=== PATIENT | female | born 1950 | race Caucasian/White ===

== ENCOUNTER 2025-03-30 20:24 | Emergency (ER) | payer MEDICARE, SELFPAY ==
[2025-03-30 20:45] VITALS: BP 161/77; PULSE 87; RESP 16; TEMP 36.7; O2SAT 96; BMI 32.9
--- NOTE | 2025-03-30 20:48 | ED.GENADULT ---
HPI - General Adult General Chief complaint: General Medical Stated complaint: swollen right eye from medication prescribed UC Time Seen by Provider: 03/31/25 03:06 Source: patient Mode of arrival: ambulatory Limitations: no limitations History of Present Illness ED Provider: Dr. Alis Rubio HPI narrative: Patient comes to the emergency room complaining of an allergic reaction to amoxicillin. Patient states that a proximally 15 hours ago, patient was seen at urgent care. Patient tested negative for strep, however, she was diagnosed with a salivary gland infection and was prescribed amoxicillin. Patient states that she took 2 doses of amoxicillin and shortly after, within an hour she started developing right periorbital edema. Patient states that she called urgent care where she was previously seen and she was told that they did not believe it was an allergic reaction. However they did instruct her to take Benadryl. Patient states that the swelling just kept getting worse. Patient states that she never had any chest pain or shortness of breath or oropharyngeal swelling. Patient states that it has been several hours since she took Benadryl and the swelling is starting to calm down and she can now open and close her eye Related Data Previous Rx's ?Medication ?Instructions ?Recorded clindamycin HCl 150 mg capsule 150 mg PO TID 7 days #21 caps 03/31/25 famotidine 40 mg tablet (Pepcid) 40 mg PO DAILY #4 tabs 03/31/25 prednisone 50 mg tablet 50 mg PO DAILY #4 tabs 03/31/25 Allergies Allergy/AdvReac Type Severity Reaction Status Date / Time No Known Allergies Allergy Verified 03/30/25 20:50 Review of Systems Review of Systems: Constitutional : No Weight loss, No Fever, No Chills, No Night Sweats, No Fatigue, No Malaise ENT/Mouth : No Hearing loss, No Ear Pain, No Nasal Congestion, No Sinus Pain, No Hoarseness, No sore throat, No Rhinorrhea, No Swallowing Difficulty Eyes: Patient complaining of right periorbital edema which is actually getting better after 4 doses of Benadryl, No Eye Pain, No Swelling, No Redness, No Foreign Body, No Discharge, No Vision Changes Cardiovascular : No Chest Pain, No SOB, No Dyspnea on Exertion, No Orthopnea, No Edema, No Palpitations Respiratory : No Cough, No Sputum, No Wheezing, No Smoke Exposure, No Dyspnea Gastrointestinal : No Nausea, No Vomiting, No Diarrhea, No Constipation, No abdominal Pain, No Hematochezia, No Melena Genitourinary : no irregular bleeding, No Dysuria, No Urinary Frequency, No Hematuria, No Urinary Incontinence, No Urgency, No Flank Pain, No Urinary Flow Changes, No Hesitancy Musculoskeletal : No joint pain, No Myalgias, No Joint Swelling Skin : No Skin Lesions, No rash Neuro : No Weakness, No Numbness, No Paresthesias, No Loss of Consciousness, No Dizziness, No Headache Psych : No Anxiety/Panic, No Depression, No SI/HI/AH/VH, No Social Issues, Heme/Lymph: No Bruising, No Bleeding,No Lymphadenopathy Endocrine : No Polyuria, No Polydipsia, No Temperature Intolerance [facility] Past Medical History Medical History (Updated 03/31/25 @ 03:25 by Alis Rubio MD) Allergic reaction Social History Social History Advance Directives: No Advance Directives Information Provided: Yes Do you have a plan to hurt others: No Plan Physical Exam ED Vital Signs: Vital Signs - 24 hr 03/30/25 20:45 03/30/25 22:20 03/31/25 00:19 Temperature 98.1 F 98.6 F Pulse Rate 87 91 78 Respiratory Rate 16 18 16 Blood Pressure 161/77 H 148/70 H Pulse Oximetry 96 96 95 Oxygen Delivery Method Room Air Room Air Room Air BMI result Body Mass Index 32.9 Const Other: Appearance: Alert. Oriented X3. No acute distress. Eyes: Pupils equal, round and reactive to light. Patient's upper eyelid is still a bit swollen, there is periorbital erythema. ENT: Pharynx normal. Neck: Normal inspection. Neck supple. No lymph nodes noted. No crepitus CVS: Normal heart rate and rhythm. Pulses normal. Normal S1 and S2 Respiratory: No respiratory distress. Breath sounds normal. No Wheezing. No rales Abdomen: Soft and nontender. No rigidity. No distention. Skin: Skin warm and dry. Normal skin color. Normal skin turgor. Extremities: No lower extremity edema. No Lacerations. No Rash Neuro: Oriented X 3. No motor deficit. No sensory deficit. Moving all extremities. No slurred speech. CN 2 through 12 grossly intact Psych: calm, cooperative, normal affect Course Course Course Narrative: 03/30/252048 HONORIO Plunkett This is a Rapid Medical Examination (RME) performed by Julián Zamora PA-C in triage. Full HPI, ROS, assessment and treatment plan per primary provider in the Main ED. Hx: 74 yo F here w/ swelling to right face/ periorbital region x8 hours. reports being evaluated at today, diagnosed w/ infection of salivary gland . Discharged home with amoxicillin. Reports taking her 1st dose this morning, shortly after began noticing swelling to the right side of her face/eye. Reports taking 2 Benadryl around 12:00 p.m. and then a 2nd dose around 4pm with some improvement of swelling. Reports calling the doctor who told her got this probably was not a reaction to the amoxicillin. she then took a 2nd dose of abx at 1930. here w/ continued swelling. admits to cough. no difficulty breathing. PE/vitals: vitals stable. noted swelling to right periorbital region. posterior oropharynx wnl. airway patent. Plan: labs Medical Decision Making Medical Decision Making MDM Narrative: Patient states that at this time that I am seeing her, it has been a few hours since she took the Benadryl and her right eye swelling is significantly better after taking 4 doses. Patient denies any oropharyngeal edema, no swelling, physical exam shows upper and lower right palpebral edema, mild Patient was given p.o. prednisone, Pepcid, patient already took several doses of Benadryl. I discussed with the patient to try using sour candy, take the prednisone at home, warm compresses and avoid using antibiotic. If her symptoms do not improve, patient instructed to start taking the antibiotic. Patient agrees with plan. Lab Data 03/30/25 21:01 03/30/25 21:01 Labs: Lab Results 03/30/25 Range/Units 21:01 WBC 11.0 H (4.8-10.8) X10*3/uL RBC 4.43 (4.20-5.50) X10*6/uL Hgb 13.2 (12.0-16.0) g/dl Hct 38.9 (37.0-47.0) % MCV 87.8 (80.0-98.0) fL MCH 29.8 (27.0-33.0) pg MCHC 33.9 (31.0-35.0) g/dl RDW 11.7 (11.0-16.0) % Plt Count 267 (160-400) X10*3/uL MPV 9.8 (9.4-12.3) fL Immature Gran % (Auto) 0.5 H (0.0-0.4) % Neut % (Auto) 66.1 (45-73) % Lymph % (Auto) 17.6 L (20-40) % [place] % (Auto) 11.1 H (2-11) % Eos % (Auto) 4.0 (0-4) % Baso % (Auto) 0.7 (0-2) % Lymph # (Auto) 1.9 (1.2-4.9) X10*3/uL [place] # (Auto) 1.2 (0.1-1.2) X10*3/uL Eos # (Auto) 0.4 (0.0-0.4) X10*3/uL Baso # (Auto) 0.1 (0.0-0.2) X10*3/uL Abs Immat Gran (auto) 0.06 H (0.00-0.03) X10*3/uL Absolute Neuts (auto) 7.3 (2.0-8.3) x10*3/uL Absolute Nucleated RBC 0.000 (0.0-0.012) X10*3/uL Nucleated RBC % (auto) 0.0 (0.0-0.2) /100WBC Sodium 138 (135-145) mmol/L Potassium 4.5 (3.3-5.1) mmol/L Chloride 102 (96-108) mmol/L Carbon Dioxide 24 (22-29) mmol/L Anion Gap 17 (12-20) BUN 17 H (9-16) mg/dL Creatinine 0.67 (0.5-1.4) mg/dL Estim Creat Clear Calc 69.3 Estimated GFR > 60 Random Glucose 169 H (60-115) mg/dL Calcium 9.4 (8.4-10.2) mg/dL Total Bilirubin 0.6 (0.0-1.0) mg/dL AST 39 H (5-31) U/L ALT 19 (0-31) U/L Alkaline Phosphatase 70 (39-117) U/L Total Protein 7.9 (6.5-8.0) g/dL Albumin 4.0 (3.5-5.0) g/dL Discharge Plan Discharge Clinical Impression: Allergic reaction Patient Disposition: Home, Self-Care Instructions: Antibiotic Medication Allergy (ED) Additional Instructions: Please do not take amoxicillin anymore. For the next 24 hours, use sour candy, prednisone, warm compresses. It is possible that you may not need antibiotics at all. If you do not have any improvement or if you have worsening symptoms, you may start taking the antibiotics. If you do take the 2nd antibiotic, make sure that you eat yogurt or get probiotics from a pharmacy. Please follow-up with your primary care physician tomorrow. If you have any worsening or new symptoms, please return to the emergency room or call 911 Prescriptions: New clindamycin HCl 150 mg capsule 150 mg PO TID 7 Days Qty: 21 0RF prednisone 50 mg tablet 50 mg PO DAILY Qty: 4 0RF famotidine [Pepcid] 40 mg tablet 40 mg PO DAILY Qty: 4 0RF Print Language: Moldovan
[2025-03-30 21:05] LABS: MANUAL DIFF FLAG NO
[2025-03-30 21:07] LABS: Basophils Absolute Auto 0.1 X10*3/uL (0.0-0.2); Basophils Percent Auto 0.7 % (0-2); Eosinophils Absolute Auto 0.4 X10*3/uL (0.0-0.4); Hematocrit 38.9 % (37.0-47.0); Hemoglobin 13.2 g/dl (12.0-16.0); Imm Gran Abs Auto 0.06 X10*3/uL (0.00-0.03); Imm Gran Pct Auto 0.5 % (0.0-0.4); Lymphocytes Absolute Auto 1.9 X10*3/uL (1.2-4.9); Lymphocytes Percent Auto 17.6 % (20-40); Mean Corpuscular HGB Conc 33.9 g/dl (31.0-35.0); Mean Corpuscular Hemoglobin 29.8 pg (27.0-33.0); Mean Corpuscular Volume 87.8 fL (80.0-98.0); Mean Platelet Volume 9.8 fL (9.4-12.3); Monocytes Absolute Auto 1.2 X10*3/uL (0.1-1.2); Monocytes Percent Auto 11.1 % (2-11); Neutrophils Absolute Auto 7.3 x10*3/uL (2.0-8.3); Neutrophils Percent Auto 66.1 % (45-73); Platelet Count 267 X10*3/uL (160-400); Red Blood Count 4.43 X10*6/uL (4.20-5.50); Red Cell Distribution Width 11.7 % (11.0-16.0)
[2025-03-30 21:23] LABS: Alanine Aminotransferase 19 U/L (0-31); Alkaline Phosphatase 70 U/L (39-117); Anion Gap 17 (12-20); Aspartate Amino Transferase 39 U/L (5-31); Bilirubin Total 0.6 mg/dL (0.0-1.0); Blood Urea Nitrogen 17 mg/dL (9-16); Calcium 9.4 mg/dL (8.4-10.2); Carbon Dioxide 24 mmol/L (22-29); Chloride 102 mmol/L (96-108); Creatinine Clr Calc Pharmacy 69.3; Estimated Glomerular Filt Rate > 60; Glucose Random 169 mg/dL (60-115); Potassium 4.5 mmol/L (3.3-5.1); Sodium 138 mmol/L (135-145); Total Protein 7.9 g/dL (6.5-8.0)
[2025-03-30 22:20] VITALS: PULSE 91; RESP 18; O2SAT 96
[2025-03-31 00:19] VITALS: BP 148/70; PULSE 78; RESP 16; TEMP 37; O2SAT 95
[2025-03-31] MEDS: predniSONE 20 MG TABLET 60 MG PO (03:26)
[2025-03-31] MEDS: Famotidine 20 MG TABLET PO (03:26)
[2025-03-31 03:28] VITALS: BP 148/70; PULSE 78; RESP 16; TEMP 37; O2SAT 95
== END 2025-03-31 03:28 | disposition home or self-care (01) ==
PROVIDERS: Physician Assistant Medical; Emergency Provider Emergency Medicine; PCP Nurse Practitioner Pediatrics
DX: H05.221 Edema of right orbit (principal); T36.0X5A Adverse effect of penicillins, initial encounter; Y92.9 Unspecified place or not applicable
CPT/HCPCS: 36415; 80053; 85025; 99283

== ENCOUNTER 2025-04-08 04:02 | Emergency (ER) | payer MEDICARE, SELFPAY ==
--- NOTE | ~2025-04-08 | CT_ITS ---
CLINICAL HISTORY: Ludwigs angina CT soft tissue neck with contrast Comparison: None Findings: Subcutaneous edema is seen within the submental, sublingual, right submandibular, and right carotid spaces. Small amount of also fluid tracks along the retropharyngeal space. 2.7 x 1.3 cm fluid collection is seen inferior to the lingual tonsils with obstruction of the airway (axial image 52 of series 2). There is thickening of the epiglottis with non aeration of the vallecula. 2.4 x 1.0 cm focal fluid is seen in the piriform sinuses with narrowing of the airway (axial image 74 of series 2). The thyroid gland appears normal. 5 mm right intraparotid lymph node is noted. There is no adenopathy. The lung apices are clear. Significant degenerative changes are seen in the cervical spine. No acute osseous abnormality is identified. The ascending aorta is dilated at 4.0 cm. There is an aberrant right subclavian artery. IMPRESSION: 1. Subcutaneous edema within the submental, sublingual, right submandibular, and right carotid spaces consistent with cellulitis. Small amount of fluid also tracks along the retropharyngeal space. 2. 2.7 x 1.3 cm fluid collection inferior to the lingual tonsils with obstruction of the airway (axial image 52 of series 2) and 2.4 x 1.0 cm focal fluid in the piriform sinuses with narrowing of the airway (axial image 74 of series 2). These may represent phlegmon/developing abscesses. 3. Thickening of the epiglottis with non aeration of the vallecula. 4. Dilated 4.0 cm ascending aorta. 5. Aberrant right subclavian artery. This document has been electronically signed by: Peña Sarabia on 04/08/2025 06:19:30
[2025-04-08 04:06] VITALS: BP 172/106; PULSE 98; RESP 20; TEMP 36.9; O2SAT 97; BMI 33.1
--- NOTE | 2025-04-08 04:11 | ED_ITS ---
HPI - Allergic Reaction General Chief complaint: Dyspnea Stated complaint: difficulty breathing with swollen neck Time Seen by Provider: 04/08/25 04:07 Source: patient Mode of arrival: ambulatory Limitations: no limitations History of Present Illness ED Provider: HPI narrative: Patient with history of hypertension on chlorthalidone/atenolol treated for was seen at the urgent care center on 03/29 for patient has cellulitis and sore throat suspected salivary gland infection started on amoxicillin patient was seen here next day as the swelling got worse diagnose as? Allergic reaction to amoxicillin treated with prednisone , clindamycin and famotidine which she finished 3 days ago no imaging was done at that time, comes here for increased swelling of the neck and under the tongue with difficulty in speaking no lip swelling no fever no chills not on any ISAI inhibitor has slight difficulty in breathing but saturating 97% at room air no stridor Related Data Previous Rx's ?Medication ?Instructions ?Recorded clindamycin HCl 150 mg capsule 150 mg PO TID 7 days #21 caps 03/31/25 famotidine 40 mg tablet (Pepcid) 40 mg PO DAILY #4 tabs 03/31/25 prednisone 50 mg tablet 50 mg PO DAILY #4 tabs 03/31/25 Allergies Allergy/AdvReac Type Severity Reaction Status Date / Time No Known Allergies Allergy Verified 04/08/25 04:08 Review of Systems 2 Review of Systems: Yes all other systems are reviewed and are negative PMFSH Past Medical History Medical History Allergic reaction Social History Social History Advance Directives: No Advance Directives Information Provided: Yes Physical Exam ED Vital Signs: Vital Signs - 24 hr 04/08/25 04:06 04/08/25 05:53 Temperature 98.4 F 98.3 F Pulse Rate 98 86 Respiratory Rate 20 18 Blood Pressure 172/106 H 129/106 H Pulse Oximetry 97 95 Oxygen Delivery Method Room Air Room Air BMI result Body Mass Index 33.1 Appearance: Alert. Oriented X3. No acute distress. Eyes: No pallor or icterus ENT: Swelling of the undersurface of Tongue and hypoglossal area no lip swelling no stridor teeth are intact no signs of infection no crepitus teeth with feelings no gum swelling or tenderness Neck: Swelling of submandibular space Neck supple. CVS: Normal heart rate and rhythm. Pulses normal. Respiratory: No respiratory distress. Equal air entry bilateral, no wheezing/rales/rhonchi Abdomen: Soft and nontender. Bowel sounds are present, no mass palpable, no CVA tenderness Skin: Skin warm and dry. Normal skin color. Normal skin turgor. Extremities: No lower extremity edema. No calf tenderness Neuro: Oriented X 3. Medications Administered Discontinued Medications Generic Name Dose Route Start Last Admin Trade Name Freq PRN Reason Stop Dose Admin Dexamethasone Sodium Phosphate 10 mg 04/08/25 04:12 04/08/25 04:18 Dexamethasone Sod Phosphate 10 Mg/Ml Vial IVPUSH 04/08/25 04:13 10 mg ONCE ONE Administration Diphenhydramine HCl 50 mg 04/08/25 04:12 04/08/25 04:18 Diphenhydramine Hcl 50 Mg/Ml Vial IVPUSH 04/08/25 04:13 50 mg ONCE ONE Administration Famotidine 20 mg 04/08/25 04:12 04/08/25 04:18 Famotidine/Pf 20 Mg/2 Ml Vial IVPUSH 04/08/25 04:13 20 mg ONCE ONE Administration Iohexol 60 ml 04/08/25 04:59 04/08/25 05:00 Iohexol 350 Mg/Ml 100 Ml Infus..Btl IV 04/08/25 05:00 60 ml ONCE ONE Administration Medical Decision Making Medical Decision Making [facility] Narrative: 620 am Patient hypoglossal/deep neck infection with fluid collection and slightly compromising airways at this time there is no stridor CT scan showed fluid collection and deep neck space may represent phlegmon/developing abscess will start patient on Zosyn IV patient was given tetanus booster dose in the ER patient has already received Decadron and Benadryl on arrival Case discussed with Dr. Ma ENT at [facility] accepted the patient for transfer to the ED at this time patient is saturating 96% at room air without significant stridor talking full sentences Differential Diagnosis Differential Diagnoses: The differential diagnosis associated with the presentation includes Kai's angina/deep neck abscess/fluid collection/allergic reaction Admission/Observation Consideration of admission/observation: Escalation of care including admission/observation considered Lab Data [facility] Lab Attestation statement: I reviewed the patient's lab results. 04/08/25 04:15 04/08/25 04:15 Labs: Lab Results 04/08/25 04/08/25 Range/Units 04:12 04:15 WBC 12.0 H (4.8-10.8) X10*3/uL RBC 4.90 (4.20-5.50) X10*6/uL Hgb 14.5 (12.0-16.0) g/dl Hct 41.8 (37.0-47.0) % MCV 85.3 (80.0-98.0) fL MCH 29.6 (27.0-33.0) pg MCHC 34.7 (31.0-35.0) g/dl RDW 11.9 (11.0-16.0) % Plt Count 244 (160-400) X10*3/uL MPV 9.5 (9.4-12.3) fL Immature Gran % (Auto) 1.1 H (0.0-0.4) % Neut % (Auto) 68.3 (45-73) % Lymph % (Auto) 17.4 L (20-40) % [place] % (Auto) 10.4 (2-11) % Eos % (Auto) 2.2 (0-4) % Baso % (Auto) 0.6 (0-2) % Lymph # (Auto) 2.1 (1.2-4.9) X10*3/uL [place] # (Auto) 1.3 H (0.1-1.2) X10*3/uL Eos # (Auto) 0.3 (0.0-0.4) X10*3/uL Baso # (Auto) 0.1 (0.0-0.2) X10*3/uL Abs Immat Gran (auto) 0.13 H (0.00-0.03) X10*3/uL Absolute Neuts (auto) 8.2 (2.0-8.3) x10*3/uL Absolute Nucleated RBC 0.000 (0.0-0.012) X10*3/uL Nucleated RBC % (auto) 0.0 (0.0-0.2) /100WBC Hold Blue Top SEE NOTE Sodium 135 (135-145) mmol/L Potassium 3.4 D (3.3-5.1) mmol/L Chloride 96 (96-108) mmol/L Carbon Dioxide 26 (22-29) mmol/L Anion Gap 16 (12-20) BUN 12 (9-16) mg/dL Creatinine 0.55 (0.5-1.4) mg/dL Estim Creat Clear Calc 84.7 Estimated GFR > 60 Random Glucose 146 H (60-115) mg/dL Calcium 9.3 (8.4-10.2) mg/dL Total Bilirubin 1.0 (0.0-1.0) mg/dL AST 24 (5-31) U/L ALT 21 (0-31) U/L Alkaline Phosphatase 66 (39-117) U/L Total Protein 7.7 (6.5-8.0) g/dL Albumin 4.3 (3.5-5.0) g/dL Hold Green Top See Note Independent Interpretation I performed an independent interpretation of an: CT Scan Radiology Impression Discussion of test interpretation with radiology: I have reviewed the radiologist's reading. Radiologist Impression: [place] [id number] CT Scan Report Signed with Eloisa Patient: She Balderrama MR#: [id number] : 1950 Acct:[id number] Age/Sex: 74 / F ADM Date: 04/08/25 Loc: .ED Attending Dr: Ordering Physician: Rito Dawn MD Date of Service: 04/08/25 Procedure(s): CT soft tissue neck w IV con Accession Number(s): [id number] cc: Physician,Unknown ; Rito Dawn MD~ Report Number: [id number]: Total DLP = 514.00 mGy-cm ADDENDUMThis document has been electronically signed by: Peña Sarabia on 04/08/2025 06:19:30 ADDENDUM: This report was discussed with López Kay on April 08, 2025 06:23:00 EDT. This document has been electronically signed by: Betty Mullen on 04/08/2025 06:23:27 Addendum Dictated By: Peña Sarabia MD Addendum Signed By: <Electronically signed by Peña Sarabia MD in OV> 04/08/25623 Addendum Cosigned By: DD/ TD/TT: 04/08/25 CLINICAL HISTORY: Lud[place]igs angina CT soft tissue neck with contrast Comparison: None Findings: Subcutaneous edema is seen within the submental, sublingual, right submandibular, and right carotid spaces. Small amount of also fluid tracks along the retropharyngeal space. 2.7 x 1.3 cm fluid collection is seen inferior to the lingual tonsils with obstruction of the airway (axial image 52 of series 2). There is thickening of the epiglottis with non aeration of the vallecula. 2.4 x 1.0 cm focal fluid is seen in the piriform sinuses with narrowing of the airway (axial image 74 of series 2). The thyroid gland appears normal. 5 mm right intraparotid lymph node is noted. There is no adenopathy. The lung apices are clear. Significant degenerative changes are seen in the cervical spine. No acute osseous abnormality is identified. The ascending aorta is dilated at 4.0 cm. There is an aberrant right subclavian artery. IMPRESSION: 1. Subcutaneous edema within the submental, sublingual, right submandibular, and right carotid spaces consistent with cellulitis. Small amount of fluid also tracks along the retropharyngeal space. 2. 2.7 x 1.3 cm fluid collection inferior to the lingual tonsils with obstruction of the airway (axial image 52 of series 2) and 2.4 x 1.0 cm focal fluid in the piriform sinuses with narrowing of the airway (axial image 74 of series 2). These may represent phlegmon/developing abscesses. 3. Thickening of the epiglottis with non aeration of the vallecula. 4. Dilated 4.0 cm ascending aorta. 5. Aberrant right subclavian artery. This document has been electronically signed by: Peña Sarabia on 04/08/2025 06:19:30 Dictated By: Peña Sarabia MD Signed By: <Electronically signed by Peña Sarabia MD in OV> 04/08/25619 DD/ 8 TD/TT: 04/08/25618 Mobile Ui Developer: Critical Care Time Critical Care Time Critical Care Time: Yes Total Critical Care Time: 60 Attestation: The patient was critically ill with a high probability of imminent or life threatening deterioration. I spent greater than 70???minutes of discontinuous time evaluating the patient,delivering critical care at the bedside, discussing and evaluating pertinent data with consultants. Critical care time does not include time spent performing separately billable procedures or teaching. Total time spent performing critical care was 60???minutes. Discharge Plan Discharge Clinical Impression: Kai angina, Cellulitis of pharynx Patient Disposition: [facility] Transfer Details: [facility] Emergency department ENT Dr. Ma Prescriptions: No Action clindamycin HCl 150 mg capsule 150 mg PO TID 7 Days Qty: 21 0RF prednisone 50 mg tablet 50 mg PO DAILY Qty: 4 0RF famotidine [Pepcid] 40 mg tablet 40 mg PO DAILY Qty: 4 0RF Print Language: Greek
[2025-04-08] MEDS: Famotidine/PF 20 MG/2 ML VIAL IVPUSH (04:18)
[2025-04-08] MEDS: diphenhydrAMINE HCL 50 MG/ML VIAL IVPUSH (04:18)
[2025-04-08] MEDS: dexAMETHasone sod phosphate 10 MG/ML VIAL IVPUSH (04:18)
[2025-04-08 04:22] LABS: MANUAL DIFF FLAG NO
[2025-04-08 04:23] LABS: Basophils Absolute Auto 0.1 X10*3/uL (0.0-0.2); Basophils Percent Auto 0.6 % (0-2); Eosinophils Absolute Auto 0.3 X10*3/uL (0.0-0.4); Eosinophils Percent Auto 2.2 % (0-4); Hematocrit 41.8 % (37.0-47.0); Hemoglobin 14.5 g/dl (12.0-16.0); Imm Gran Abs Auto 0.13 X10*3/uL (0.00-0.03); Imm Gran Pct Auto 1.1 % (0.0-0.4); Lymphocytes Absolute Auto 2.1 X10*3/uL (1.2-4.9); Lymphocytes Percent Auto 17.4 % (20-40); Mean Corpuscular HGB Conc 34.7 g/dl (31.0-35.0); Mean Corpuscular Hemoglobin 29.6 pg (27.0-33.0); Mean Corpuscular Volume 85.3 fL (80.0-98.0); Mean Platelet Volume 9.5 fL (9.4-12.3); Monocytes Absolute Auto 1.3 X10*3/uL (0.1-1.2); Monocytes Percent Auto 10.4 % (2-11); Neutrophils Absolute Auto 8.2 x10*3/uL (2.0-8.3); Neutrophils Percent Auto 68.3 % (45-73); Platelet Count 244 X10*3/uL (160-400); Red Cell Distribution Width 11.9 % (11.0-16.0)
[2025-04-08 04:45] LABS: Alanine Aminotransferase 21 U/L (0-31); Albumin Level 4.3 g/dL (3.5-5.0); Alkaline Phosphatase 66 U/L (39-117); Anion Gap 16 (12-20); Aspartate Amino Transferase 24 U/L (5-31); Blood Urea Nitrogen 12 mg/dL (9-16); Calcium 9.3 mg/dL (8.4-10.2); Carbon Dioxide 26 mmol/L (22-29); Chloride 96 mmol/L (96-108); Creatinine Clr Calc Pharmacy 84.7; Estimated Glomerular Filt Rate > 60; Glucose Random 146 mg/dL (60-115); Potassium 3.4 mmol/L (3.3-5.1); Sodium 135 mmol/L (135-145); Total Protein 7.7 g/dL (6.5-8.0)
[2025-04-08] MEDS: iohexoL 350 MG/ML 100 ML INFUS..BTL 60 ML IV (05:00)
[2025-04-08 05:53] VITALS: BP 129/106; PULSE 86; RESP 18; TEMP 36.8; O2SAT 95
[2025-04-08] MEDS: Piperacillin Sodium/Tazobactam 3.375 GM in 0.9 % Sodium Chloride 50 ML IV (06:39)
[2025-04-08] MEDS: Diphth,Pertus(ACell),Tet Adult 0.5 ML SYRINGE IM (06:40)
--- NOTE | 2025-04-08 07:24 | PC.NURSE ---
Assumed care of pt at 0700. Pt resting in bed quietly, a/ox3, speaking in full sentences, respirations even and unlabored, no increased wob/sob noted, airway remains patent, no stridor noted, maintaining airway >92% on RA, traffic monitor specialist/continuous O2 probe to monitor pt, no lip/tongue/neck swelling, denies cp/sob. Pt up oob, ambulatory to bathroom with steady gait. Pt and family member at bedside updated on plan of care.
[2025-04-08 08:46] VITALS: BP 130/98; PULSE 80; RESP 18; TEMP 36.9; O2SAT 96
[2025-04-08 08:52] VITALS: BP 130/98; PULSE 80; RESP 18; TEMP 36.8; O2SAT 96
== END 2025-04-08 08:53 | disposition short-term general hospital (02) ==
PROVIDERS: Emergency Provider Internal Medicine
DX: K12.2 Cellulitis and abscess of mouth (principal); J39.1 Other abscess of pharynx; R06.02 Shortness of breath; R22.1 Localized swelling, mass and lump, neck; Z23 Encounter for immunization; Z79.899 Other long term (current) drug therapy
CPT/HCPCS: 36415; 70491; 80053; 85025; 90471; 90715; 96365; 96375; 99285; J1100; J1200; J1308; J2543; Q9967

== ENCOUNTER → 2025-04-08 04:12 | Outpatient (BNV) | payer MEDICARE, SELFPAY | PROVIDERS: Emergency Provider Internal Medicine; Visit Provider Radiology Vascular & Interventional Radiology | DX: J05.10 Acute epiglottitis without obstruction (principal); I71.21 Aneurysm of the ascending aorta, without rupture; R60.0 Localized edema | CPT/HCPCS: 70491 ==